=== PATIENT | female | born 1975 | race Two or more races ===

== ENCOUNTER → 2018-03-01 | Outpatient (CLI) | payer MEDICAID ==
[~2018-03-01] MED LIST: ACE3 PO; ACET-1966 PO; ACET500T68 PO; ALBMDV INH; ALP5 PO; AMO875 PO; AMOX-362 PO; AMOX-559 PO; ARI10 PO; CEP500 PO; CITA-157 PO; CLIN300C99 PO; CLON-303 *; CYCL10TA29 PO; DOCU-416 PO; FLUO-202 PO; FLUO40CA76 PO; HYDR-4309 PO; HYDR50CA47 PO; IBU800 PO; IBUP-56 PO; IBUP800T37 PO; LEVO1TBD11 PO; LIOT25TA19 PO; LIT300CAP PO; LITH300T18 PO; LOR5 PO; MIR; NIF10 PO; OLAN2.5T22 PO; OLAN5TAB25 PO; ONDA4TAB PO; PAR20 PO; PEN250 PO; PNV1CAPS53 PO; PRE20 PO; PROM-110 PO; TOBDOO OS; TRAM-420 PO; TRIC15T TOP
--- NOTE | 2018-03-02 11:43 | RADIOLOGY IMAGING REPORT ---
FACILITY: [facility] - [place] PATIENT NAME: ROSI TRINH : [id number] MR: [id number] V: [id number] EXAM DATE: ORDERING PHYSICIAN: NATI MACIEL TECHNOLOGIST: Stacy Anna PROCEDURE:BILATERAL DIGITAL SCREENING MAMMOGRAM WITH CAD ASSISTED INTERPRETATION & 3D TOMOSYNTHESIS COMPARISON:None. This is the patient's baseline mammogram. INDICATIONS:SCREENING FINDINGS: Moderately dense fibroglandular tissue is seen throughout the breasts. There is an ovoid well circumscribed nodular density seen in the medial portion of the Left breast posterior 1/3. This is best seen on Tomographic image 27 this is not well seen on the Left MLO view. Ultrasound of the medial portion of the Left breast is recommended for further evaluation. DIAGNOSTIC CATEGORY 0--INCOMPLETE: NEED ADDITIONAL IMAGING EVALUATION. RECOMMENDATIONS: ULTRASOUND: LEFT BREAST. IMPRESSION: BIRADS 0: Incomplete. Ultrasound of the Left breast is recommended. Dictated by: Kaila Bui M.D. on 03/02/2018 at 8:41 Transcribed by: MALINDA on 03/02/2018 at 9:02 Approved by: Kaila Bui M.D. on 03/02/2018 at 11:42 [facility]
== END ==
LOC: MAMO 01:45
PROVIDERS: ATTEND Nurse Practitioner Family
DX: Z12.31 Encounter for screening mammogram for malignant neoplasm of breast (principal); R92.8 Other abnormal and inconclusive findings on diagnostic imaging of breast
CPT/HCPCS: 77063; 77067

== ENCOUNTER → 2018-04-19 | Outpatient (CLI) | payer MEDICAID ==
--- NOTE | 2018-04-20 16:57 | RADIOLOGY IMAGING REPORT ---
FACILITY: [facility] - [place] PATIENT NAME: ROSI TRINH : [id number] MR: [id number] V: [id number] EXAM DATE: [id number] ORDERING PHYSICIAN: NATI MACIEL TECHNOLOGIST: Alexa Espinoza RT(R)(CT) PROCEDURE:US LEFT BREAST COMPARISON:Prior mammogram dated 03/01/18. INDICATIONS:FURTHER EVAL FINDINGS: There is a 3.8mm cyst in the 9 o'clock position of the Right breast 2cm from the nipple likely accounting for the nodular density seen on the recent mammogram. In the 11 o'clock position Left breast 4cm from the nipple is an ovoid hypoechoic nodule measuring 9x9 7.6 x 4mm. The nodule is wider than tall. There is faint acoustic enhancement with no acoustic shadowing. A 6 month follow up Left breast Ultrasound is recommended to evaluate this solid hypoechoic nodule. DIAGNOSTIC CATEGORY 3--PROBABLY BENIGN FINDING. RECOMMENDATIONS: SIX MONTH FOLLOW-UP ULTRASOUND: LEFT BREAST. IMPRESSION: BIRADS 3: Probably benign finding. A 6 month follow up Left breast Ultrasound is recommended to evaluate the solid hypoechoic nodule in the 11 o'clock position of the Left breast. There is a small cyst in the 9 o'clock position of the Left breast likely accounting for the recent mammographic finding. Dictated by: Kaila Bui M.D. on 04/20/2018 at 11:31 Transcribed by: RILEY on 04/20/2018 at 15:50 Approved by: Kaila Bui M.D. on 04/20/2018 at 16:55 [facility]
== END ==
LOC: US 08:00
PROVIDERS: ATTEND Nurse Practitioner Family
DX: N63.22 Unspecified lump in the left breast, upper inner quadrant (principal); N60.02 Solitary cyst of left breast

== ENCOUNTER → 2018-11-04 | Outpatient (CLI) | payer MEDICAID ==
[~2018-11-04] MED LIST changes: -HYDR-4309 PO; +HYDR-653 PO
--- NOTE | 2018-11-04 15:24 | RADIOLOGY IMAGING REPORT ---
FACILITY: [facility] PATIENT NAME: ROSI TRINH : [id number] MR: [id number] V: [id number] EXAM DATE: [id number] ORDERING PHYSICIAN: NATI MACIEL TECHNOLOGIST: Alexa Espinoza RT(R)(CT) PROCEDURE:US LEFT BREAST COMPARISON:Prior Left mammogram 04/19/18. INDICATIONS:FOLLOWUP FINDINGS: In the 10 o'clock position of the Left breast 2cm from the nipple there are 2 contiguous cysts the largest measuring 8.5mm in diameter. In the 10 o'clock position of the Left breast 2cm from the nipple there is a 5.6mm cyst. In the 11 o'clock position of the Left breast 4cm from the nipple again noted is the circumscribed lobular hypoechoic nodule measuring 5.7 x 9.6 x 5.5mm. The configuration of the nodule has changed and has slightly increased in size. Given this interval change Ultrasound guided core biopsy is recommended. In the 12 o'clock position of the Left breast 2cm from the nipple is a 4mm cyst. In the 12 o'clock position of the Left breast 1cm from the nipple is a well circumscribed ovoid hypoechoic nodule measuring 5.9 x 6.4 x 3mm there is no acoustic shadowing. This nodule is wider than tall. DIAGNOSTIC CATEGORY 4--SUSPICIOUS FOR MALIGNANCY. RECOMMENDATIONS: SIX MONTH FOLLOW-UP ULTRASOUND: LEFT BREAST. ULTRASOUND-GUIDED CORE BIOPSY: LEFT BREAST. IMPRESSION: BIRADS 4: Suspicious for malignancy. Ultrasound guided core biopsy of the solid hypoechoic lobular nodule in the 11 o'clock position of the Left breast 4cm from the nipple due to the slight interval increase in size and the change in the shape. There are multiple Left breast cysts. In the 12 o'clock position of the Left breast 1cm from the nipple is a well circumscribed ovoid hypoechoic nodule measuring 5.9 x 6.4 x 3mm for which a 6 month follow-up Left breast Ultrasound is recommended. Dictated by: Kaila Bui M.D. on 11/04/2018 at 12:10 Transcribed by: MALINDA on 11/04/2018 at 15:02 Approved by: Kaila Bui M.D. on 11/04/2018 at 15:24 [facility]
--- NOTE | 2018-11-04 15:25 | RADIOLOGY IMAGING REPORT ---
FACILITY: [facility] - [place] PATIENT NAME: ROSI TRINH : [id number] MR: [id number] V: [id number] EXAM DATE: [id number] ORDERING PHYSICIAN: NATI MACIEL TECHNOLOGIST: Sandee Murray PROCEDURE:LEFT DIGITAL DIAGNOSTIC MAMMOGRAM WITH CAD ASSISTED INTERPRETATION & 3D TOMOSYNTHESIS COMPARISON:Today's Left breast Ultrasound and a prior mammogram 03/01/18. INDICATIONS:Further evaluation FINDINGS: Patient received a Spot compression views in Left CC projection and full field Left CC & MLO views. The breasts are heterogeneously dense which can obscure small masses. The well circumscribed nodular density in the medial portion of the Left breast in the posterior 1/3 is re-identified although the posterior borders were not completely imaged. This is not well seen on the Left MLO view. Today's Left breast Ultrasound did demonstrate a lobular hypoechoic mass in the 11 o'clock position which is slightly increased in size and a change in shape therefore Ultrasound guided core biopsy is recommended. The parenchymal pattern throughout the Left breast has otherwise remained stable. DIAGNOSTIC CATEGORY 4--SUSPICIOUS FOR MALIGNANCY. RECOMMENDATIONS: SIX MONTH FOLLOW-UP DIAGNOSTIC MAMMOGRAM: BILATERAL BREASTS. SIX MONTH FOLLOW-UP ULTRASOUND: LEFT BREAST. ULTRASOUND-GUIDED CORE BIOPSY: LEFT BREAST. IMPRESSION: BIRADS 4: Suspicious for malignancy. Ultrasound guided core biopsy of the lobular mass in the 11 o'clock position of the Left breast is recommended as described. Please see Left breast Ultrasound dictation. The patient will also be due for her annual bilateral mammogram in February 2019. Dictated by: Kaila Bui M.D. on 11/04/2018 at 12:13 Transcribed by: MALINDA on 11/04/2018 at 13:39 Approved by: Kaila Bui M.D. on 11/04/2018 at 15:24 [facility]
== END ==
LOC: US 00:44
PROVIDERS: ATTEND Nurse Practitioner Family
DX: N63.22 Unspecified lump in the left breast, upper inner quadrant (principal)
CPT/HCPCS: 77061; 77065

== ENCOUNTER 2018-11-10 09:06 | Outpatient (RCR) | payer MEDICAID ==
[2018-11-10 09:27] LABS: INR 1.03
== END 2018-11-10 18:00 | disposition home or self-care (01) ==
LOC: US 09:06 → EDSTATUS 11-11 09:05
PROVIDERS: ATTEND Nurse Practitioner Family
DX: R92.2 Inconclusive mammogram (principal)
CPT/HCPCS: 36415; 85610

== ENCOUNTER → 2018-11-26 | Outpatient (CLI) | payer MEDICAID ==
--- NOTE | 2018-11-30 10:22 | RADIOLOGY IMAGING REPORT ---
FACILITY: [facility] PATIENT NAME: ROSI TRINH : [id number] MR: [id number] V: [id number] EXAM DATE: [id number] ORDERING PHYSICIAN: NATI MACIEL TECHNOLOGIST: Mata Caceres RDMS, [facility] PROCEDURE: BIOPSY LEFT BREAST COMPARISON: Prior mammogram 11/04/18. INDICATIONS: left breast biopsy 11 o'clock nodule FINDINGS: Ultrasound guided potential aspiration or core biopsy of the hypoechoic structure in the upper aspect of the Left breast was discussed with the patient and informed consent was obtained. The breast was prepped with cloraprep and sterile towels were placed. Ultrasound visualization was utilized during the procedure. Lidocaine was administered from the skin down towards the hypoechoic nodule under Ultrasound visualization. Using Ultrasound and 18 Gauge spinal needle was advanced into the structure and was manipulated but I was unable to aspirate any material from it. A small maurice was made in the skin with a scalpel blade. Using Ultrasound visualization and a 14 Gauge core biopsy needle 4 core samples were obtained through the structure. Given the depth of the structure, sampling was done with an open chamber technique rather than forward firing of the biopsy needle. Tissue sampling appeared to be adequate. A marker clip was then deployed against the mass under Ultrasound. Direct pressure was applied to insure that hemostasis was achieved. No immediate complications were noted. The core samples were placed in formalin for pathologic evaluation. Post biopsy mammogram shows the clip in posterior aspect in the upper outer aspect of the breast. Also note, we did re-assess the 12 o'clock area of the breast live today. Both the technologist and myself could only identify 1 cyst comparing hypoechoic 6mm structure which appears to correlate with the indeterminate new focus shown by the recent Ultrasound. For this reason, I don't think 6 month follow-up of that lesion will be necessary, sense it had a benign appearance by Ultrasound today. IMPRESSION: 1. Technically successful ultrasound guided core biopsy of the 11 o'clock hypoechoic Left breast nodule. Pathology is pending. Dictated by: Ney Otoole on 11/26/2018 at 15:38 Transcribed by: MALINDA on 11/29/2018 at 15:52 Approved by: Kaila Bui M.D. on 11/30/2018 at 10:21 [facility]
--- NOTE | 2018-11-30 10:22 | RADIOLOGY IMAGING REPORT ---
FACILITY: [facility] - [place] PATIENT NAME: ROSI TRINH : [id number] MR: [id number] V: [id number] EXAM DATE: [id number] ORDERING PHYSICIAN: NATI MACIEL TECHNOLOGIST: Mata Caceres RDMS, [facility] PROCEDURE: BIOPSY LEFT BREAST COMPARISON: Prior mammogram 11/04/18. INDICATIONS: left breast biopsy 11 o'clock nodule FINDINGS: Ultrasound guided potential aspiration or core biopsy of the hypoechoic structure in the upper aspect of the Left breast was discussed with the patient and informed consent was obtained. The breast was prepped with cloraprep and sterile towels were placed. Ultrasound visualization was utilized during the procedure. Lidocaine was administered from the skin down towards the hypoechoic nodule under Ultrasound visualization. Using Ultrasound and 18 Gauge spinal needle was advanced into the structure and was manipulated but I was unable to aspirate any material from it. A small maurice was made in the skin with a scalpel blade. Using Ultrasound visualization and a 14 Gauge core biopsy needle 4 core samples were obtained through the structure. Given the depth of the structure, sampling was done with an open chamber technique rather than forward firing of the biopsy needle. Tissue sampling appeared to be adequate. A marker clip was then deployed against the mass under Ultrasound. Direct pressure was applied to insure that hemostasis was achieved. No immediate complications were noted. The core samples were placed in formalin for pathologic evaluation. Post biopsy mammogram shows the clip in posterior aspect in the upper outer aspect of the breast. Also note, we did re-assess the 12 o'clock area of the breast live today. Both the technologist and myself could only identify 1 cyst comparing hypoechoic 6mm structure which appears to correlate with the indeterminate new focus shown by the recent Ultrasound. For this reason, I don't think 6 month follow-up of that lesion will be necessary, sense it had a benign appearance by Ultrasound today. IMPRESSION: 1. Technically successful ultrasound guided core biopsy of the 11 o'clock hypoechoic Left breast nodule. Pathology is pending. Dictated by: Ney Otoole on 11/26/2018 at 15:38 Transcribed by: MALINDA on 11/29/2018 at 15:52 Approved by: Kaila Bui M.D. on 11/30/2018 at 10:21 [facility]
== END ==
LOC: US 01:58
PROVIDERS: ATTEND Nurse Practitioner Family
DX: N60.22 Fibroadenosis of left breast (principal)
CPT/HCPCS: 19083; 77061; 77065; 88305; 88344